=== PATIENT | male | born 1985 | race American Indian/Alaskan Native ===

== ENCOUNTER 2018-10-30 19:43 | Emergency (ER) | payer SELFPAY ==
--- NOTE | 2018-10-30 20:48 | Event Note ---
ED Screening Note Date of service: 10/30/18 Time: 20:44 ED Screening Note: This is a 33 y.o. M. that presents to the ER with abdominal pain for 2 weeks. Taking antacids without relief. -n/v/d Reports pain as a burning sensation. Patient states he noticed symptoms after drinking a beer 2 days ago. This initial assessment/diagnostic orders/clinical plan/treatment(s) is/are subject to change based on patients health status, clinical progression and re- assessment by fellow clinical providers in the ED. Further treatment and workup at subsequent clinical providers discretion. Patient/guardian urged not to elope from the ED as their condition may be serious if not clinically assessed and managed. Initial orders include: Labs and CT of abdomen and pelvis
[2018-10-30 21:21] LABS: Hematocrit 31.9 % (35.5-45.6); Hemoglobin 9.7 gm/dl (11.8-15.2); Mean Corpuscular HGB Conc 30 % (32-34); Platelet Count 369 K/mm3 (140-440); Red Blood Count 5.04 M/mm3 (3.65-5.03)
[2018-10-30 21:22] LABS: Mean Corpuscular Volume 63 fl (84-94); Red Cell Distribution Width 21.1 % (13.2-15.2)
[2018-10-30 21:32] LABS: Alanine Aminotransferase 10 units/L (7-56); Albumin 4.6 g/dL (3.9-5); BUN/Creatinine Ratio 14; Blood Urea Nitrogen 13 mg/dL (9-20); Calcium 11.4 mg/dL (8.4-10.2); Hemolysis Index 7
[2018-10-30 21:43] LABS: Bilirubin,Urine NEG (Negative); Blood,Urine NEG (Negative); Color,Urine Yellow (Yellow); Mucus,Urine FEW /HPF; Protein,Urine <15 mg/dL mg/dL (Negative); Urobilinogen,Urine < 2.0 mg/dL (<2.0)
[2018-10-30 21:52] LABS: Total Cells Counted 100
[2018-10-30 21:53] LABS: Anisocytosis 1+; Hypochromasia 1+
--- NOTE | 2018-10-30 23:14 | Cat Scan Report ---
CT abdomen pelvis w con INDICATION: diffuse abdominal pain. TECHNIQUE: All CT scans at this location are performed using the following dose modulation technique: Automated exposure control. Helical slices were obtained through the abdomen and pelvis following the administr ation of 100 cc of Omnipaque 300 COMPARISON: None available. FINDINGS: Abdomen: The lung bases are clear. Liver, spleen, pancreas, adrenal glands, and kidneys are unremarka ble. The aorta is normal in diameter. There are no abnormal fluid collections. There is questionable wall thickening in the distal stomach/duodenal bulb with possible minimal stran ding in the adjacent fat raising possibility of peptic ulcer disease. There is no free air. There are no abnormal fluid collections. Pelvis: The appendix is unremarkable. The bowel is unremarkable. There is no inflammatory change. The re are no abnormal fluid collections. On review of bone windows, no acute osseous abnormalities are seen. There are no abnormal fluid colle ctions. IMPRESSION: 1. There is questionable wall thickening in the distal stomach/duodenal bulb with some minimal strand ing in adjacent fat this is not specific or definitive. This raises the possibility of gastritis or p eptic ulcer disease. There is no free air. There is no obstruction. The appendix is unremarkable. Signer Name: Federico Aguilar MD Signed: 10/30/2018 11:10 PM Workstation Name: [id number]
[2018-10-30] MEDS ORDERED: BENTYL PO ONE ×2 (23:38)
[2018-10-30] MEDS ORDERED: LIDOCAINE VISCOUS 2% PO ONE (23:38)
[2018-10-30] MEDS ORDERED: ALUM-MAG HYDROX-SIMETH 200-200-20MG/5ML PO ONE (23:38)
--- NOTE | 2018-10-30 23:41 | Emergency Department Report ---
HPI - General Chief Complaint: Abdominal Pain Time Seen by Provider: 10/30/18 20:44 - HPI HPI: This is of 33-year-old male here complaining of upper abdominal pain pointing to his epigastric area reports burning lots of burping that has been ongoing over the last 2 weeks. He denies any rectal bleed or vomiting blood. He said he feels bloated with denies any diarrhea. Denies passing gas reports that he has regurgitation of food with sour taste in the back of his mouth. Pain is burning and radiation a 6-9 out of 10. Pain is worse with lying down. He said he is taking TUMS and is not helping. Denies any shortness of breath or difficulty breathing. Denies any history of any medical problems. Denies taking drugs such as cocaine, meth or any narcotics. Denies alcohol abuse. Reports nausea sometimes but no vomiting. ED Past Medical Hx - Past Medical History Previous Medical History?: No - Surgical History Past Surgical History?: No - Family History Family history: hypertension - Social History Smoking Status: Current Some Day Smoker Substance Use Type: None - Medications Home Medications: Home Medications Medication Instructions Recorded Confirmed Last Taken Type Docusate Sodium [Colace] 100 mg PO BID 30 Days #60 capsule 10/31/18 Unknown Rx Esomeprazole Magnesium [NexIUM] 40 mg PO QDAY 30 Days #30 10/31/18 Unknown Rx capsule. Ferrous Sulfate [Slow Fe 142 MG] 142 mg PO BID 30 Days #60 tablet.er 10/31/18 Unknown Rx Lactobacillus Combo No.10 1 each PO QDAY 30 Days #30 capsule 10/31/18 Unknown Rx [Probiotic] ED Review of Systems ROS: Stated complaint: ABD PAIN Other details as noted in HPI Constitutional: denies: chills, fever ENT: denies: ear pain, throat pain, congestion Respiratory: denies: cough, shortness of breath, SOB with exertion, SOB at rest, stridor, wheezing Cardiovascular: chest pain (chest burning). denies: palpitations, dyspnea on exertion, edema, syncope Endocrine: denies: excessive sweating, flushing, intolerance to cold, intolerance to heat, increased hunger, increased thirst, increased urine, unexplained weight gain, unexplained weight loss Gastrointestinal: nausea, other (bloating with burping). denies: abdominal pain, vomiting, diarrhea, constipation, hematemesis, melena, hematochezia Genitourinary: denies: urgency, dysuria Musculoskeletal: denies: back pain, joint swelling, arthralgia, myalgia Skin: denies: rash Neurological: denies: headache, numbness, paresthesias, abnormal gait Physical Exam - Physical Exam Vital Signs: Vital Signs 10/30/18 10/30/18 20:30 20:45 Temperature 98.7 F 98.7 F Pulse Rate 79 79 Respiratory 18 20 Rate Blood Pressure 116/78 Blood Pressure 116/78 [Left] O2 Sat by Pulse 100 100 Oximetry General: This is a 33-year-old male well-nourished well-developed in no acute distress. Physical Exam: Head: Normocephalic atraumatic. Mouth: Oral mucosa moist, tongue is normal, uvula is midline, no PARKING OFFICER or drooling, oral airways patent and uvula is Lungs: Clear to auscultated bilaterally, no rhonchi wheezes or rales. No use of accessory muscles. Neck: Full range of motion, supple nontender to palpate. No bruit. CV/chest: S1, S2. Regular rate . No audible murmur. Nontender to palpate the chest wall with no deformity or crepitus. Abdomen: Nontender to palpate in all quadrants, normal bowel sounds in all caitlyn drants. No distention. Eyes: Bilateral pupils equal and reactive to light, normal conjunctivae bila teral EOM intact and normal accommodation. Lids are normal. No swelling noted. Skin: Clean and dry and intact and no rash or lesions Extremity: No cce. + 2 pulses in all extremities, no neurovascular compromise. Mood: Normal mood and behavior Male : Rectal exam with no external or internal hemorrhoid. No overt bleeding noted. No rash lesions noted. Stool occult blood collected and completed and was negative. Normal sphincter tone. ED Course Vital Signs 10/30/18 10/30/18 20:30 20:45 Temperature 98.7 F 98.7 F Pulse Rate 79 79 Respiratory 18 20 Rate Blood Pressure 116/78 Blood Pressure 116/78 [Left] O2 Sat by Pulse 100 100 Oximetry - Reevaluation(s) Reevaluation #1: 10/31/18 01:04 Patient given Bentyl 40 mg by mouth, lidocaine 15 mL and Maalox 30 mL and em ergency room with relief of chest burning. He had EKG which shows sinus bradycardia 56 beats per minutes with no signs of acute changes. All other lab works are normal to include CMP and CBC along with urinalysis except patient with anemia of unknown region.. Awaiting troponin results. Reevaluation #2: 10/31/18 01:05 TUAN =0 heart score= 0 Reevaluation #3: I discussed this case with Dr. Hampton to include lab results and he agrees wi assessment and plan. 10/31/18 02:32 Patient is feeling better after GI cocktail given. Stool for occult blood is negative. - Procedure Description Procedures done: Rectal exam. Normal rectal exam without any abnormality. ED Medical Decision Making - Lab Data Result diagrams: 10/30/18 20:53 10/30/18 20:53 Lab Results 10/30/18 10/30/18 10/30/18 Range/Units 20:53 20:53 Unknown WBC 8.6 (4.5-11.0) K/mm3 RBC 5.04 H (3.65-5.03) M/mm3 Hgb 9.7 L (11.8-15.2) gm/dl Hct 31.9 L (35.5-45.6) % MCV 63 L (84-94) fl MCH 19 L (28-32) pg MCHC 30 L (32-34) % RDW 21.1 H (13.2-15.2) % Plt Count 369 (140-440) K/mm3 Lymph % (Auto) Dermatology Procedural Physician Payne % (Auto) Dermatology Procedural Physician Eos % (Auto) Dermatology Procedural Physician Baso % (Auto) Dermatology Procedural Physician Lymph # Dermatology Procedural Physician Payne # Dermatology Procedural Physician Eos # Dermatology Procedural Physician Baso # Dermatology Procedural Physician Add Manual Diff Complete Total Counted 100 Seg Neutrophils % Dermatology Procedural Physician Seg Neuts % (Manual) 63.0 (40.0-70.0) % Band Neutrophils % 0 % Lymphocytes % (Manual) 30.0 (13.4-35.0) % Reactive Lymphs % (Man) 0 % Monocytes % (Manual) 5.0 (0.0-7.3) % Eosinophils % (Manual) 1.0 (0.0-4.3) % Basophils % (Manual) 1.0 (0.0-1.8) % Metamyelocytes % 0 % Myelocytes % 0 % Promyelocytes % 0 % Blast Cells % 0 % Nucleated RBC % Not Reportable Seg Neutrophils # Dermatology Procedural Physician Seg Neutrophils # Man 5.4 (1.8-7.7) K/mm3 Band Neutrophils # 0.0 K/mm3 Lymphocytes # (Manual) 2.6 (1.2-5.4) K/mm3 Abs React Lymphs (Man) 0.0 K/mm3 Monocytes # (Manual) 0.4 (0.0-0.8) K/mm3 Eosinophils # (Manual) 0.1 (0.0-0.4) K/mm3 Basophils # (Manual) 0.1 (0.0-0.1) K/mm3 Metamyelocytes # 0.0 K/mm3 Myelocytes # 0.0 K/mm3 Promyelocytes # 0.0 K/mm3 Blast Cells # 0.0 K/mm3 WBC Morphology Not Reportable Hypersegmented Neuts Not Reportable Hyposegmented Neuts Not Reportable Hypogranular Neuts Not Reportable Smudge Cells Not Reportable Toxic Granulation Not Reportable Toxic Vacuolation Not Reportable Dohle Bodies Not Reportable Pelger-Huet Anomaly Not Reportable Newton Rods Not Reportable Platelet Estimate Not Reportable Clumped Platelets Not Reportable Plt Clumps, EDTA Not Reportable Large Platelets Not Reportable Giant Platelets Not Reportable Platelet Satelliting Not Reportable Plt Morphology Comment Not Reportable RBC Morphology Not Reportable Dimorphic RBCs Not Reportable Polychromasia Not Reportable Hypochromasia 1+ Poikilocytosis Not Reportable Anisocytosis 1+ Microcytosis 1+ Macrocytosis Not Reportable Spherocytes Not Reportable Pappenheimer Bodies Not Reportable Sickle Cells Not Reportable Target Cells Not Reportable Tear Drop Cells Not Reportable Ovalocytes Not Reportable Helmet Cells Not Reportable Iglesias-[place] Bodies Not Reportable [place] Rings Not Reportable Yessica Cells Not Reportable Bite Cells Not Reportable Crenated Cell Not Reportable Elliptocytes Not Reportable Acanthocytes (Spur) Not Reportable Rouleaux Not Reportable Hemoglobin C Crystals Not Reportable Schistocytes Not Reportable Malaria parasites Not Reportable Josué Bodies Not Reportable Hem Pathologist Commnt No Sodium 136 L (137-145) mmol/L Potassium 4.7 (3.6-5.0) mmol/L Chloride 98.5 (98-107) mmol/L Carbon Dioxide 23 (22-30) mmol/L Anion Gap 19 mmol/L BUN 13 (9-20) mg/dL Creatinine 0.9 (0.8-1.5) mg/dL Estimated GFR > 60 ml/min BUN/Creatinine Ratio 14 % Glucose 91 (75-100) mg/dL Calcium 11.4 H (8.4-10.2) mg/dL Total Bilirubin 0.30 (0.1-1.2) mg/dL AST 15 (5-40) units/L ALT 10 (7-56) units/L Alkaline Phosphatase 37 (35-129) units/L Troponin T (0.00-0.029) ng/mL Total Protein 8.3 H (6.3-8.2) g/dL Albumin 4.6 (3.9-5) g/dL Albumin/Globulin Ratio 1.2 % Lipase 19 (13-60) units/L Urine Color Yellow (Yellow) Urine Turbidity Clear (Clear) Urine pH 5.0 (5.0-7.0) Ur Specific [place] 1.019 (1.003-1.030) Urine Protein <15 mg/dl (Negative) mg/dL Urine Glucose (UA) Neg (Negative) mg/dL Urine Ketones Neg (Negative) mg/dL Urine Blood Neg (Negative) Urine Nitrite Neg (Negative) Urine Bilirubin Neg (Negative) Urine Urobilinogen < 2.0 (<2.0) mg/dL Ur Leukocyte Esterase Neg (Negative) Urine WBC (Auto) 1.0 (0.0-6.0) /HPF Urine RBC (Auto) 2.0 (0.0-6.0) /HPF Urine Mucus Few /HPF 10/31/18 Range/Units 00:18 WBC (4.5-11.0) K/mm3 RBC (3.65-5.03) M/mm3 Hgb (11.8-15.2) gm/dl Hct (35.5-45.6) % MCV (84-94) fl MCH (28-32) pg MCHC (32-34) % RDW (13.2-15.2) % Plt Count (140-440) K/mm3 Lymph % (Auto) Payne % (Auto) Eos % (Auto) Baso % (Auto) Lymph # Payne # Eos # Baso # Add Manual Diff Total Counted Seg Neutrophils % Seg Neuts % (Manual) (40.0-70.0) % Band Neutrophils % % Lymphocytes % (Manual) (13.4-35.0) % Reactive Lymphs % (Man) % Monocytes % (Manual) (0.0-7.3) % Eosinophils % (Manual) (0.0-4.3) % Basophils % (Manual) (0.0-1.8) % Metamyelocytes % % Myelocytes % % Promyelocytes % % Blast Cells % % Nucleated RBC % Seg Neutrophils # Seg Neutrophils # Man (1.8-7.7) K/mm3 Band Neutrophils # K/mm3 Lymphocytes # (Manual) (1.2-5.4) K/mm3 Abs React Lymphs (Man) K/mm3 Monocytes # (Manual) (0.0-0.8) K/mm3 Eosinophils # (Manual) (0.0-0.4) K/mm3 Basophils # (Manual) (0.0-0.1) K/mm3 Metamyelocytes # K/mm3 Myelocytes # K/mm3 Promyelocytes # K/mm3 Blast Cells # K/mm3 WBC Morphology Hypersegmented Neuts Hyposegmented Neuts Hypogranular Neuts Smudge Cells Toxic Granulation Toxic Vacuolation Dohle Bodies Pelger-Huet Anomaly Newton Rods Platelet Estimate Clumped Platelets Plt Clumps, EDTA Large Platelets Giant Platelets Platelet Satelliting Plt Morphology Comment RBC Morphology Dimorphic RBCs Polychromasia Hypochromasia Poikilocytosis Anisocytosis Microcytosis Macrocytosis Spherocytes Pappenheimer Bodies Sickle Cells Target Cells Tear Drop Cells Ovalocytes Helmet Cells Iglesias-[place] Bodies [place] Rings Yessica Cells Bite Cells Crenated Cell Elliptocytes Acanthocytes (Spur) Rouleaux Hemoglobin C Crystals Schistocytes Malaria parasites Josué Bodies Hem Pathologist Commnt Sodium (137-145) mmol/L Potassium (3.6-5.0) mmol/L Chloride (98-107) mmol/L Carbon Dioxide (22-30) mmol/L Anion Gap mmol/L BUN (9-20) mg/dL Creatinine (0.8-1.5) mg/dL Estimated GFR ml/min BUN/Creatinine Ratio % Glucose (75-100) mg/dL Calcium (8.4-10.2) mg/dL Total Bilirubin (0.1-1.2) mg/dL AST (5-40) units/L ALT (7-56) units/L Alkaline Phosphatase (35-129) units/L Troponin T < 0.010 (0.00-0.029) ng/mL Total Protein (6.3-8.2) g/dL Albumin (3.9-5) g/dL Albumin/Globulin Ratio % Lipase (13-60) units/L Urine Color (Yellow) Urine Turbidity (Clear) Urine pH (5.0-7.0) Ur Specific [place] (1.003-1.030) Urine Protein (Negative) mg/dL Urine Glucose (UA) (Negative) mg/dL Urine Ketones (Negative) mg/dL Urine Blood (Negative) Urine Nitrite (Negative) Urine Bilirubin (Negative) Urine Urobilinogen (<2.0) mg/dL Ur Leukocyte Esterase (Negative) Urine WBC (Auto) (0.0-6.0) /HPF Urine RBC (Auto) (0.0-6.0) /HPF Urine Mucus /HPF - EKG Data -: EKG Interpreted by Me (attending physician in the emergency room) EKG shows normal: sinus rhythm Rate: bradycardia (this 66 bpm) - EKG Data Interpretation: no acute changes, nonspecific ST-T wave gray - Radiology Data Radiology results: report reviewed Patient had CT scan of abdomen and pelvis with IV contrast that was dictated by radiologist and report reviewed by myself. Please see details [place] [address] Cat Scan Report Signed Patient: DENAE BARBA MR#: [id number] : 1985 Acct:[id number] Age/Sex: 33 / M ADM Date: 10/30/18 Loc: ED Attending Dr: Ordering Physician: HERBERT NORMAN Date of Service: 10/30/18 Procedure(s): CT abdomen pelvis w con Accession Number(s): [id number] cc: HERBERT NORMAN CT abdomen pelvis w con INDICATION: diffuse abdominal pain. TECHNIQUE: All CT scans at this location are performed using the following dose modulation technique: Automated exposure control. Helical slices were obtained through the abdomen and pelvis following the administration of 100 cc of Omnipaque 300 COMPARISON: None available. FINDINGS: Abdomen: The lung bases are clear. Liver, spleen, pancreas, adrenal glands, and kidneys are unremarkable. The aorta is normal in diameter. There are no abnormal fluid collections. There is questionable wall thickening in the distal stomach/duodenal bulb with possible minimal stranding in the adjacent fat raising possibility of peptic ulcer disease. There is no free air. There are no abnormal fluid collections. Pelvis: The appendix is unremarkable. The bowel is unremarkable. There is no inf lammatory change. There are no abnormal fluid collections. On review of bone windows, no acute osseous abnormalities are seen. There are no abnormal fluid collections. IMPRESSION: 1. There is questionable wall thickening in the distal stomach/duodenal bulb with some minimal stranding in adjacent fat this is not specific or definitive. This raises the possibility of gastritis or peptic ulcer disease. There is no free air. There is no obstruction. The appendix is unremarkable. Signer Name: Federico Aguilar MD Signed: 10/30/2018 11:10 PM Workstation Name: [id number] Transcribed By: Dictated By: Federico Aguilar MD Electronically Authenticated By: Federico Aguilar MD Signed Date/Time: 10/30/182309 DD/ 06 TD/TT: - Medical Decision Making This is a 34-year-old male here report that he has been having 2 weeks of upper abdominal pain with burning lots of burping, regurg and sour taste with burping in the back of his mouth. Pain is a burning pain in range from 6-9 out of 10. Pain is intermittent. Pain is better with sitting up and worse with laying down. He said he is taking [id number] Tums without any relief. Patient had lab work done which was stable except a CBC shows mild anemia which is unusual for male and he reports that his diet is not that great. Patient denied any rectal bleeding or vomiting blood and rectal exam was done which is normal and stool for occult blood is also normal. Patient has CT scan of abdomen and pelvis and IV contrast does dictated by radiologist and report reviewed by myself and shows possibility of PUD and gastritis without any other abnormality. I discussed the patient lab results and CT scan results along with diagnosis and treatment plan and he is aware that he has to follow up with primary care and also GI doctor for follow-up care and possible upper endoscopic and colonoscopy. I discussed diet with him and let him know he needs to avoid spicy and carbonated beverages and foods. Patient is stable and discharged home with his family prescription for Nexium and Bentyl and referral to primary care as he does not have access to primary care nor does he have insurance I will refer him to [facility] and to [facility]. Patient heart score was low and did not warrant any further tests then is TUAN score is 0. Cardiac troponin was negative - Differential Diagnosis ACS,GI bleed, Carcinoma GBD, Pancreatis, ACS, GI ulcer, Gastritis, GERD Critical care attestation.: If time is entered above; I have spent that time in minutes in the direct care of this critically ill patient, excluding procedure time. ED Disposition Clinical Impression: Dyspepsia, Epigastric burning sensation Anemia Qualifiers: Anemia type: unspecified type Qualified Code(s): D64.9 - Anemia, unspecified Disposition: TO HOME OR SELFCARE Is pt being admited?: No Does the pt Need Aspirin: No Condition: Stable Instructions: Peptic Ulcer (ED), Gastritis (ED), Diet for Ulcers and Gastritis (ED), Gastroesophageal Reflux Disease (ED), Esomeprazole (By mouth) Additional Instructions: If you condition worsens or if he developed rectal bleeding, dizziness, nausea and vomiting, no weak feeling or vomiting blood, please return to the emergency room. Please see discharge instruction paperwork on gastritis, peptic ulcer disease and food that he can eat. avoid acidic food and acidic and carbonated beverages. Avoid spicy food Take Nexium to help with acid reflux He will need to follow up with the primary care doctor and city planning aide an d 2-3 days. Please see discharge instruction paperwork for referral. Prescriptions: Docusate Sodium [Colace] 100 mg PO BID 30 Days #60 capsule Esomeprazole Magnesium [NexIUM] 40 mg PO QDAY 30 Days #30 capsule.dr Mancini Combana No.10 [Probiotic] 1 each PO QDAY 30 Days #30 capsule Ferrous Sulfate [Slow Fe 142 MG] 142 mg PO BID 30 Days #60 tablet.er Referrals: [facility] [Provider Group] - 11/02/18 [facility] [Outside] - 11/02/18 Forms: Accompanied Note, Work/School Release Form(ED)
[2018-10-31 03:20] VITALS: BP 117/78
== END 2018-10-31 03:19 | disposition home or self-care (01) ==
LOC: ED 19:43
DX: D64.9 Anemia, unspecified (principal); R10.13 Epigastric pain; F17.200 Nicotine dependence, unspecified, uncomplicated; Z79.899 Other long term (current) drug therapy
CPT/HCPCS: 36415; 74177; 80053; 81001; 83690; 84484; 85007; 85025; 93005; 93010; 99284; Q9967